=== PATIENT | female | born 1970 | race Caucasian/White ===

== ENCOUNTER 2016-04-14 20:30 | Emergency (ER) | payer MEDICAID ==
--- NOTE | 2016-04-14 20:54 | Emergency Department Record ---
History of Present Illness - General Chief Complaint: Cough Stated Complaint: COUGH,DIARRHEA,HEADACHE Time Seen by Provider: 04/14/16 20:53 Source: Patient Mode of Arrival: Ambulatory Limitations: No limitations - History of Present Illness Initial Comments: The patient is here due to a cough, sinus pressure, nasal congestion and loose stools for 4 days. She denies any fever, chills, AP, back pain or vomiting. She has had mild congestion with the cough but no SOB. MD Complaint: Cough, Nasal congestion, Rhinorrhea, Sinus pain Onset/Timin -: Days(s) Severity: Mild - Related Data Home Medications Medication Instructions Recorded Confirmed Last Taken Cetirizine HCl [All Day Allergy] 10 mg PO DAILY 05/28/14 04/14/16 01/09/16 Fluticasone Propionate [Flovent 50 mcg IH DAILY 05/28/14 04/14/16 01/09/16 Diskus] Albuterol Sulfate [Proair Hfa] 1 puff INH ASDIR PRN 04/14/16 04/14/16 Unknown Previous Rx's Medication Instructions Recorded Albuterol Sulfate [Proair Hfa] 2 puff IH QID PRN #1 inhaler 04/14/16 Doxycycline Monohydrate [Mondoxyne 100 mg PO BID #14 capsule 04/14/16 Nl] Prednisone [Prednisone 20Mg] 40 mg PO DAILY #8 tab 04/14/16 Allergies Allergy/AdvReac Type Severity Reaction Status Date / Time aspirin [ASPIRIN] Allergy Unknown PT UNSURE Verified 01/09/16 13:36 OF REACTION latex [LATEX] Allergy Unknown PT UNSURE Verified 01/09/16 13:36 OF REACTION Penicillins [PENICILLINS] Allergy Unknown PT UNSURE Verified 01/09/16 13:36 OF REACTION Review of Systems Constitutional: Denies: Chills, Fever Eyes: Denies: Eye discharge ENT: Reports: Congestion Respiratory: Reports: Cough. Denies: Dyspnea Cardiovascular: Denies: Arrhythmia Endocrine: Reports: Fatigue Past Medical History - SOCIAL HISTORY Smoking Status: Current every day smoker Drug Use: None - RESPIRATORY Hx Respiratory Disorders: No Hx Asthma: No - CARDIOVASCULAR Hx Cardio Disorders: No - NEURO Hx Neuro Disorders: No - GI Hx GI Disorders: No - Hx Genitourinary Disorders: No - ENDOCRINE Hx Endocrine Disorders: No - MUSCULOSKELETAL Hx Musculoskeletal Disorders: No Comment:: Extensive Eczema - PSYCH Hx Psych Problems: No - HEMATOLOGY/ONCOLOGY Hx Hematology/Oncology Disorders: No Family Medical History Hx Cancer: Father Hx Diabetes: Father, Mother Physical Exam - General General Appearance: Alert, Oriented x3, Cooperative, No acute distress - Head Head exam: Atraumatic, Normocephalic, Normal inspection - Eye Eye exam: Normal appearance, PERRL - ENT ENT exam: Normal exam, Mucous membranes moist, Normal external ear exam, Normal orophraynx, TM's normal bilaterally Throat exam: Tonsillar erythema. negative: Normal inspection, Tonsillomegaly - Neck Neck exam: Normal inspection, Full ROM. negative: Lymphadenopathy, Meningismus , Tenderness - Respiratory Respiratory exam: Normal lung sounds bilaterally. negative: Respiratory distress - Cardiovascular Cardiovascular Exam: Regular rate, Normal rhythm, Normal heart sounds - GI/Abdominal GI/Abdominal exam: Soft, Normal bowel sounds. negative: Tenderness - Extremities Extremities exam: Normal inspection, Full ROM, Normal capillary refill. negative: Tenderness Course Vital Signs 04/14/16 20:36 Temperature 98.1 F Pulse Rate [ 106 H Pulse Ox Probe] Respiratory 20 Rate Blood Pressure 130/75 [Left Arm] Pulse Ox 94 L - Reevaluation(s) Reevaluation #1: The patient is doing much better after the breathing tx. Her lungs are clear and her RA biox is 96%. She feels much better and is ready for home. 04/14/16 21:56 Medical Decision Making - Data Complexity MDM Data: Labs Ordered and/or Reviewed (Flu: Neg), X-Ray Ordered and/or Reviewed - Radiology Data Radiology results: Report reviewed (CXR: Neg.) Disposition Disposition: Discharge Clinical Impression: Acute upper respiratory infection Disposition: Home, Self-Care Condition: (1) Good Instructions: Upper Respiratory Infection (ED) Additional Instructions: Please continue the inhaller and continue the Prednisone and Doxycycline. Please see your PCP for recheck next week if not better. Return to the ER for any increased cough, ALLISON, SOB, or fever. Prescriptions: Doxycycline Monohydrate [Mondoxyne Nl] 100 mg PO BID #14 capsule Prednisone [Prednisone 20Mg] 40 mg PO DAILY #8 tab Albuterol Sulfate [Proair Hfa] 2 puff IH QID PRN #1 inhaler PRN Reason: Cough And Difficulty Breathing Time of Disposition: 21:58
[2016-04-14] MEDS ORDERED: IPRATROPIUM/ALBUTEROL (0.5MG/3MG) NEB INH ONE (21:03)
[2016-04-14 21:26] LABS: INFLUENZA A NEGATIVE (NEGATIVE); INFLUENZA B NEGATIVE (NEGATIVE)
[2016-04-14] MEDS ORDERED: DOXYCYCLINE HYCLATE 100 MG CAPSULE PO ONE (21:44)
[2016-04-14] MEDS ORDERED: PREDNISONE 20 MG TAB PO ONE (21:55)
== END 2016-04-14 22:03 | disposition home or self-care (01) ==
LOC: ER 20:30
DX: J06.9 Acute upper respiratory infection, unspecified (principal); R05 Cough; R51 Headache; R19.7 Diarrhea, unspecified; F17.210 Nicotine dependence, cigarettes, uncomplicated
CPT/HCPCS: 99283 ×2; 87400; 71020; 94640; J7512

== ENCOUNTER 2016-12-05 21:14 | Emergency (ER) | payer MEDICAID ==
[2016-12-05] MEDS: IPRATROPIUM/ALBUTEROL (0.5MG/3MG) NEB INH ONE (21:23)
--- NOTE | 2016-12-05 21:29 | Emergency Department Record ---
History of Present Illness - General Stated Complaint: ALLISON,ASTHEMA Time Seen by Provider: 12/05/16 21:18 Source: Patient Mode of Arrival: Ambulatory Limitations: No limitations - History of Present Illness Initial Comments: 45 yo female presents with wheezing and a dry cough for the last two days. No fevers or chills. She is a smoker. She has not had her normal asthma medication for several days as she ran out is is waiting to see her doctor for a refill. No chest pain. No abdominal pain. No leg swelling. Her PCP is Dr Mabry in [place]. No other recent changes in her health. MD Complaint: "Asthma attack", Shortness of breath, Wheezing -: Days(s) (2) Asthma History: Adult onset Severity: Moderate Context: Smoke exposure (smoker) Associated Symptoms: Dry cough Treatments Prior to Arrival: Other (None, No current medications) - Related Data Current Asthma Therapy: None Previous Rx's Medication Instructions Recorded Albuterol Sulfate [Proair Hfa] 2 puff IH QID PRN #1 inhaler 04/14/16 Doxycycline Monohydrate [Mondoxyne 100 mg PO BID #14 capsule 04/14/16 Nl] Prednisone [Prednisone 20Mg] 40 mg PO DAILY #8 tab 04/14/16 Albuterol Sulfate 0.5 ml NEB Q4H #60 ml 12/05/16 Albuterol Sulfate [Ventolin Hfa] 1 - 2 puff IH Q4H #1 inhaler 12/05/16 Azithromycin [Zithromax] 250 mg PO DAILY #4 tablet 12/05/16 Prednisone [Prednisone 20Mg] 20 mg PO BID #10 tab 12/05/16 Allergies Allergy/AdvReac Type Severity Reaction Status Date / Time aspirin [ASPIRIN] Allergy Unknown PT UNSURE Verified 01/09/16 13:36 OF REACTION latex [LATEX] Allergy Unknown PT UNSURE Verified 01/09/16 13:36 OF REACTION Penicillins [PENICILLINS] Allergy Unknown PT UNSURE Verified 01/09/16 13:36 OF REACTION Review of Systems Constitutional: Denies: Chills, Fever, Malaise, Weakness Eyes: Denies: Eye discharge, Eye pain, Photophobia, Vision change ENT: Denies: Congestion, Throat pain Respiratory: Reports: Cough, Wheezes. Denies: Dyspnea, Hemoptysis, Stridor Cardiovascular: Denies: Chest pain, Palpitations, Syncope Endocrine: Denies: Fatigue, Polydipsia, Polyuria Gastrointestinal: Denies: Abdominal pain, Diarrhea, Nausea, Vomiting Genitourinary: Denies: Dysuria, Urgency Musculoskeletal: Denies: Arthralgia, Back pain, Joint swelling, Myalgia Skin: Denies: Bruising, Change in color, Rash Neurological: Denies: Headache, Numbness, Weakness Psychiatric: Denies: Anxiety Hematological/Lymphatic: Denies: Blood Clots, Easy bleeding, Easy bruising, Swollen glands Past Medical History - SOCIAL HISTORY Smoking Status: Current every day smoker Drug Use: None - RESPIRATORY Hx Respiratory Disorders: No Hx Asthma: No - CARDIOVASCULAR Hx Cardio Disorders: No - NEURO Hx Neuro Disorders: No - GI Hx GI Disorders: No - Hx Genitourinary Disorders: No - ENDOCRINE Hx Endocrine Disorders: No - MUSCULOSKELETAL Hx Musculoskeletal Disorders: No Comment:: Extensive Eczema - PSYCH Hx Psych Problems: No - HEMATOLOGY/ONCOLOGY Hx Hematology/Oncology Disorders: No Family Medical History Hx Cancer: Father Hx Diabetes: Father, Mother Physical Exam - General General Appearance: Alert, Oriented x3, Cooperative, No acute distress Limitations: No limitations - Head Head exam: Atraumatic, Normocephalic, Normal inspection - Eye Eye exam: Normal appearance. negative: Conjunctival injection, Periorbital swelling, Scleral icterus - ENT ENT exam: Normal exam Ear exam: Normal external inspection Nasal Exam: Normal inspection Mouth exam: Normal external inspection - Neck Neck exam: Normal inspection - Respiratory Respiratory exam: Decreased breath sounds, Prolonged expiratory (mild), Wheezes. negative: Accessory muscle use, Rales, Respiratory distress, Rhonchi, Stridor - Cardiovascular Cardiovascular Exam: Regular rate, Normal rhythm, Normal heart sounds Peripheral Pulses: 2+: Radial (R), Radial (L) - GI/Abdominal GI/Abdominal exam: Soft. negative: Tenderness - Rectal Rectal exam: Deferred - exam: Deferred - Extremities Extremities exam: Normal inspection, Full ROM, Normal capillary refill. negative: Pedal edema, Tenderness - Back Back exam: Reports: Normal inspection, Full ROM. Denies: CVA tenderness (R), CVA tenderness (L), Muscle spasm, Paraspinal tenderness, Rash noted, Tenderness , Vertebral tenderness - Neurological Neurological exam: Alert, Normal gait, Oriented X3 - Psychiatric Psychiatric exam: Normal affect, Normal mood. negative: Agitated, Anxious - Skin Skin exam: Dry, Intact, Normal color, Warm Course Vital Signs 12/05/16 21:19 Temperature 98.1 F Pulse Rate [ 109 H Pulse Ox Probe] Respiratory 32 H Rate Blood Pressure 133/85 [Left Arm] Pulse Ox 95 - Reevaluation(s) Reevaluation #1: 12/05/16 21:32 After the Duoneb the patient is feeling better Her air exchange is greatly improved and her work of breathing is relaxed She will be provided her Albuterol, Flovent, Oral steroids and Antibiotics. 12/05/16 21:58 [place] she is much improved She was discharged with her medications that were all given or dispensed from the ED Disposition Disposition: Discharge Clinical Impression: Acute asthma exacerbation Qualifiers: Asthma severity: unspecified severity Asthma persistence: unspecified Qualified Code(s): J45.901 - Unspecified asthma with (acute) exacerbation Disposition: Home, Self-Care Condition: (1) Good Instructions: Asthma (ED) Additional Instructions: Call your doctor tomorrow for a recheck this week Return to the ER if you have any fever, shortness of breath or worsening Prescriptions: Albuterol Sulfate [Ventolin Hfa] 1 - 2 puff IH Q4H #1 inhaler Albuterol Sulfate 0.5 ml NEB Q4H #60 ml Azithromycin [Zithromax] 250 mg PO DAILY #4 tablet Prednisone [Prednisone 20Mg] 20 mg PO BID #10 tab Forms: Patient Portal Access Time of Disposition: 21:59 Quality - Quality Measures Quality Measures: N/A - Blood Pressure Screening Does Patient Have Any of the Following: No Blood Pressure Classification: Pre-Hypertensive BP Reading Systolic Measurement: 134 Diastolic Measurement: 85 Screening for High Blood Pressure: < Pre-Hypertensive BP, F/U Documented > [ G8950] Pre-Hypertensive Follow-up Interventions: Referral to alternative/primary care provider.
[2016-12-05] MEDS: PREDNISONE 20 MG TAB PO ONE (21:31)
[2016-12-05] MEDS: AZITHROMYCIN 500 MG TABLET PO ONE (21:31)
[2016-12-05] MEDS: ARNUITY (FLUTICASONE FUROATE) 100MCG INH INH STA (21:42)
[2016-12-05] MEDS: ALBUTEROL HFA 8 GM INHALER INH ONE (21:42)
[2016-12-05] MEDS: FLUTICASONE HFA 110 MCG INHALER INH ONE (21:57)
== END 2016-12-05 21:58 | disposition home or self-care (01) ==
LOC: ER 21:14
DX: J45.901 Unspecified asthma with (acute) exacerbation (principal); R06.02 Shortness of breath; F17.210 Nicotine dependence, cigarettes, uncomplicated
CPT/HCPCS: 99283 ×2; 94640 ×3; J7512

== ENCOUNTER 2017-12-13 15:19 | Emergency (ER) | payer MEDICAID ==
--- NOTE | 2017-12-13 15:58 | Emergency Department Record ---
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 Patient has an exzema flare. The skin doesn't look like infection but she said her dermatolgist gives her an antibiotic in this situation MD complaint: Rash Onset/Timin -: Days(s) Hx Tetanus Toxoid Vaccination: Yes Year of Tetanus Vaccination: unsure Location: Generalized Severity: Moderate Consistency: Constant Improves with: None Worsens with: None Context: None Associated symptoms: Itching Treatments Prior to Arrival: None - Related Data Previous Rx's Medication Instructions Recorded Cephalexin [Keflex] 500 mg PO QID #40 cap 12/13/17 Prednisone [Prednisone 10Mg] 10 mg PO ASDIR #30 tab 12/13/17 Allergies Allergy/AdvReac Type Severity Reaction Status Date / Time latex [LATEX] Allergy Unknown PT UNSURE Verified 12/13/17 15:24 OF REACTION Penicillins [PENICILLINS] Allergy Unknown PT UNSURE Verified 12/13/17 15:24 OF REACTION Travel Screening - Travel/Exposure Within Last 30 Days Have you traveled within the last 30 days?: No - Travel/Exposure Within Last Year Have you traveled outside the [place] in the last year?: No - Additonal Travel Details Have you been exposed to anyone with a communicable illness?: No - Travel Symptoms Symptom Screening: None Review of Systems Reviewed: No additional complaints except as noted below Constitutional: Reports: As per HPI. Denies: Chills, Fever, Malaise, Night sweats, Weakness, Weight change Eyes: Reports: As per HPI. Denies: Eye discharge, Eye pain, Photophobia, Vision change ENT: Reports: As per HPI. Denies: Congestion, Dental pain, Ear pain, Epistaxis , Hearing loss, Throat pain Respiratory: Reports: As per HPI. Denies: Cough, Dyspnea, Hemoptysis, Stridor, Wheezes Cardiovascular: Reports: As per HPI. Denies: Arrhythmia, Chest pain, Dyspnea on exertion, Edema, Murmurs, Orthopnea, Palpitations, Paroxysmal nocturnal dyspnea, Rheumatic Fever, Syncope Endocrine: Reports: As per HPI. Denies: Fatigue, Heat or cold intolerance, Polydipsia, Polyuria Gastrointestinal: Reports: As per HPI. Denies: Abdominal pain, Constipation, Diarrhea, Hematemesis, Hematochezia, Melena, Nausea, Vomiting Genitourinary: Reports: As per HPI. Denies: Abnormal menses, Discharge, Dyspareunia, Dysuria, Frequency, Hematuria, Incontinence, Retention, Urgency Musculoskeletal: Reports: As per HPI. Denies: Arthralgia, Back pain, Gout, Joint swelling, Myalgia, Neck pain Skin: Reports: As per HPI. Denies: Bruising, Change in color, Change in hair/ nails, Lesions, Pruritus, Rash Neurological: Reports: As per HPI. Denies: Abnormal gait, Confusion, Headache, Numbness, Paresthesias, Seizure, Tingling, Tremors, Vertigo, Weakness Psychiatric: Reports: As per HPI. Denies: Anxiety, Auditory hallucinations, Depression, Homicidal thoughts, Suicidal thoughts, Visual hallucinations Hematological/Lymphatic: Reports: As per HPI. Denies: Anemia, Blood Clots, Easy bleeding, Easy bruising, Swollen glands Past Medical History - SOCIAL HISTORY Smoking Status: Current every day smoker Alcohol Use: None Drug Use: None - RESPIRATORY Hx Respiratory Disorders: No Hx Asthma: No - CARDIOVASCULAR Hx Cardio Disorders: No - NEURO Hx Neuro Disorders: No - GI Hx GI Disorders: No - Hx Genitourinary Disorders: No - ENDOCRINE Hx Endocrine Disorders: No - MUSCULOSKELETAL Hx Musculoskeletal Disorders: No Comment:: Extensive Eczema - PSYCH Hx Psych Problems: No - HEMATOLOGY/ONCOLOGY Hx Hematology/Oncology Disorders: No Family Medical History Any Significant Family History?: Yes Hx Cancer: Father Hx Diabetes: Father, Mother Physical Exam - General General Appearance: Alert, Oriented x3, Cooperative, No acute distress - Head Head exam: Normal inspection - Eye Eye exam: Normal appearance, PERRL Pupils: Normal accommodation - ENT ENT exam: Normal exam, Mucous membranes moist, Normal external ear exam, Normal orophraynx, TM's normal bilaterally Ear exam: Normal external inspection. negative: External canal tenderness Nasal Exam: Normal inspection. negative: Discharge, Sinus tenderness Mouth exam: Normal external inspection, Tongue normal Teeth exam: Normal inspection. negative: Dental caries Throat exam: Normal inspection. negative: Tonsillar erythema, Tonsillar exudate - Neck Neck exam: Normal inspection, Full ROM. negative: Tenderness - Respiratory Respiratory exam: Normal lung sounds bilaterally. negative: Respiratory distress - Cardiovascular Cardiovascular Exam: Regular rate, Normal rhythm, Normal heart sounds - GI/Abdominal GI/Abdominal exam: Soft, Normal bowel sounds. negative: Tenderness - Rectal Rectal exam: Deferred - exam: Deferred - Extremities Extremities exam: Normal inspection, Full ROM, Normal capillary refill. negative: Tenderness - Back Back exam: Reports: Normal inspection, Full ROM. Denies: Muscle spasm, Rash noted, Tenderness - Neurological Neurological exam: Alert, Normal gait, Oriented X3, Reflexes normal - Psychiatric Psychiatric exam: Normal affect, Normal mood - Skin Skin exam: Dry, Intact, Normal color, Rash (all over body), Warm Course Vital Signs 12/13/17 15:27 Temperature 97.9 F Pulse Rate 98 H Respiratory 20 Rate Blood Pressure 143/77 Pulse Ox 96 Disposition Clinical Impression: Acute eczema Cellulitis Qualifiers: Site of cellulitis: extremity Site of cellulitis of extremity: axilla Laterality: right Qualified Code(s): L03.111 - Cellulitis of right axilla Disposition: Home, Self-Care Condition: (1) Good Instructions: Eczema (ED) Additional Instructions: follow up with Dr Ceballos of her family in 2-5 days Prescriptions: Cephalexin [Keflex] 500 mg PO QID #40 cap Prednisone [Prednisone 10Mg] 10 mg PO ASDIR #30 tab Forms: Patient Portal Access Time of Disposition: 16:10 Quality - Quality Measures Quality Measures: N/A - Blood Pressure Screening Does Patient Have Any of the Following: No Blood Pressure Classification: Hypertensive Reading Systolic Measurement: 143 Diastolic Measurement: 77 Screening for High Blood Pressure: < Pre-Hypertensive BP, F/U Documented > [ G8950] Pre-Hypertensive Follow-up Interventions: Referral to alternative/primary care provider.
[2017-12-13] MEDS: METHYLPREDNISOLONE 80MG/VIAL IM ONE (16:07)
== END 2017-12-13 16:15 | disposition home or self-care (01) ==
LOC: ER 15:19
DX: L30.9 Dermatitis, unspecified (principal); L03.111 Cellulitis of right axilla
CPT/HCPCS: 96372; 99282; 99283; J1040

== ENCOUNTER 2019-03-16 20:25 | Emergency (ER) | payer MEDICAID ==
--- NOTE | 2019-03-16 20:50 | Emergency Department Record ---
History of Present Illness - General Chief complaint: Rash Stated complaint: RASH ON FACE Time Seen by Provider: 03/16/19 20:43 Source: Patient Mode of Arrival: Ambulatory Limitations: No limitations - History of Present Illness Initial comments: 48 yo female presents to ED for evaluation of worsening eczema symptoms. Patient reports that she has tried numerous prescriptions previously with varied results, however a concoction of aquaphor and (2) other components however she is out of her prescription ointment. Patient reports that her PCP has been unable to fill her prescription, and her symptoms are worsening. MD complaint: Rash Onset/Timin -: Days(s) Hx Tetanus Toxoid Vaccination: Yes Year of Tetanus Vaccination: unsure Location: Head, Face, Neck, Chest, LUE, RUE, L hand, R hand Severity: Severe Severity scale (1-10): 10 Quality: Burning Consistency: Constant Improves with: Medication Worsens with: None Associated symptoms: Denies other symptoms - Related Data Previous Rx's Medication Instructions Recorded Cephalexin [Keflex] 500 mg PO QID #28 cap 03/16/19 Prednisone [Prednisone 20Mg] 20 mg PO TID #15 tab 03/16/19 Triamcinolone Acet Cream [Kenalog 1 apply TP BID #1 tube 03/16/19 Cream] Allergies Allergy/AdvReac Type Severity Reaction Status Date / Time latex [LATEX] Allergy Unknown PT UNSURE Verified 03/16/19 20:43 OF REACTION Penicillins [PENICILLINS] Allergy Unknown PT UNSURE Verified 03/16/19 20:43 OF REACTION Travel Screening - Travel/Exposure Within Last 30 Days Have you traveled within the last 30 days?: No - Travel/Exposure Within Last Year Have you traveled outside the [place] in the last year?: No - Additonal Travel Details Have you been exposed to anyone with a communicable illness?: No - Travel Symptoms Symptom Screening: None Review of Systems Constitutional: Denies: Chills, Fever, Malaise, Night sweats Eyes: Denies: Eye discharge, Eye pain ENT: Denies: Congestion, Ear pain, Epistaxis Respiratory: Denies: Cough, Dyspnea Cardiovascular: Denies: Chest pain, Dyspnea on exertion Endocrine: Denies: Fatigue, Heat or cold intolerance Gastrointestinal: Denies: Abdominal pain, Nausea, Vomiting Genitourinary: Denies: Incontinence, Retention Musculoskeletal: Denies: Arthralgia, Back pain Skin: Reports: Rash. Denies: Bruising, Change in color Neurological: Denies: Abnormal gait, Confusion, Headache, Seizure Psychiatric: Denies: Anxiety Hematological/Lymphatic: Denies: Anemia, Blood Clots Past Medical History - SOCIAL HISTORY Smoking Status: Current every day smoker Alcohol Use: None Drug Use: None - RESPIRATORY Hx Respiratory Disorders: No Hx Asthma: No - CARDIOVASCULAR Hx Cardio Disorders: No - NEURO Hx Neuro Disorders: No - GI Hx GI Disorders: No - Hx Genitourinary Disorders: No - ENDOCRINE Hx Endocrine Disorders: No - MUSCULOSKELETAL Hx Musculoskeletal Disorders: No Comment:: Extensive Eczema - PSYCH Hx Psych Problems: No - HEMATOLOGY/ONCOLOGY Hx Hematology/Oncology Disorders: No Family Medical History Any Significant Family History?: No Hx Cancer: Father Hx Diabetes: Father, Mother Hx Resp Disorders: Father, Mother Physical Exam - General General Appearance: Alert, Oriented x3, Cooperative, Mild distress Limitations: No limitations - Head Head exam: Atraumatic, Normocephalic Head exam detail: negative: Abrasion, Contusion, Parson's sign, General tenderness, Hematoma, Laceration - Eye Eye exam: Normal appearance. negative: Conjunctival injection, Periorbital swelling, Periorbital tenderness, Scleral icterus - ENT Ear exam: negative: Auricular hematoma, Auricular trauma Nasal Exam: negative: Active bleeding, Discharge, Dried blood, Foreign body Mouth exam: negative: Drooling, Laceration, Muffled voice, Tongue elevation - Neck Neck exam: Normal inspection. negative: Meningismus, Tenderness - Respiratory Respiratory exam: Normal lung sounds bilaterally. negative: Rales, Respiratory distress, Rhonchi, Stridor - Cardiovascular Cardiovascular Exam: Regular rate, Normal rhythm, Normal heart sounds - GI/Abdominal GI/Abdominal exam: Soft. negative: Rebound, Rigid, Tenderness - Rectal Rectal exam: Deferred - exam: Deferred - Extremities Extremities exam: Other (See skin examination). negative: Pedal edema, Tenderness - Back Back exam: Denies: CVA tenderness (R), CVA tenderness (L) - Neurological Neurological exam: Alert, Normal gait, Oriented X3 - Psychiatric Psychiatric exam: Normal affect, Normal mood - Skin Skin exam: Normal color Type of lesion: Rash Distribution of rash: Generalized Description of rash: Other (Diffuse exfoliative dermatitis to the face, chest, and upper extremities bilaterally) Course Vital Signs 01/18/20 20:31 Temperature 98.4 F Pulse Rate [ 104 H Pulse Ox Probe] Respiratory 18 Rate Blood Pressure 130/67 [Left Arm] Pulse Ox 98 - Reevaluation(s) Reevaluation #1: 03/16/19 21:16 Will renew the patient's Triamcinolone ointment, Keflex, and Prednisone prescriptions. Will administer Solumedrol 125 mg IN in the ED as well. Patient reports this combination has improved her symptoms numerous times previously with good results. Patient appears stable for discharge at this time. Disposition Disposition: Discharge Clinical Impression: Exfoliative dermatitis Disposition: Home, Self-Care Condition: (2) Stable Instructions: Eczema (ED) Additional Instructions: Return to ED if your symptoms worsen or if you have any concerns. Tiamcinolone, Keflex, and prednisone as directed. Follow-up with your family doctor in 3-5 days as directed. Prescriptions: Cephalexin [Keflex] 500 mg PO QID #28 cap Triamcinolone Acet Cream [Kenalog Cream] 1 apply TP BID #1 tube Prednisone [Prednisone 20Mg] 20 mg PO TID #15 tab Forms: Patient Portal Access Time of Disposition: 21:16 Quality - Quality Measures Quality Measures: N/A - Blood Pressure Screening Does Patient Have Any of the Following: No Blood Pressure Classification: Pre-Hypertensive BP Reading Systolic Measurement: 130 Diastolic Measurement: 67 Screening for High Blood Pressure: < Pre-Hypertensive BP, F/U Documented > [G8950] Pre-Hypertensive Follow-up Interventions: Referral to alternative/primary care provider.
[2019-03-16] MEDS ORDERED: CEPHALEXIN 500 MG CAPSULE PO STA (21:15)
[2019-03-16] MEDS ORDERED: METHYLPREDNISOLONE PF 125MG/VIAL IM ONE (21:15)
== END 2019-03-16 21:39 | disposition home or self-care (01) ==
LOC: ER 20:25
DX: L26 Exfoliative dermatitis (principal); F17.210 Nicotine dependence, cigarettes, uncomplicated
CPT/HCPCS: 96372; 99284; J2930